=== PATIENT | male | born 1960 | race Caucasian/White ===

== ENCOUNTER 2017-04-19 17:41 | Emergency (ER) | payer OTHER ==
[~2017-04-19] VITALS: Ht 177.8 cm; Wt 77.0 kg
[2017-04-19] MEDS ORDERED: LIDOCAINE HCL 1% 20ML VIAL (Pyxis) INJ MC ONE (20:45)
[2017-04-19] MEDS ORDERED: BACITRACIN ZINC OINT UDPKT TOP ONE (20:45)
[2017-04-19] MEDS ORDERED: ONDANSETRON 4MG ODT PO ONE (21:00)
[2017-04-19] MEDS ORDERED: HYDROCODONE/ACETAMINOPHEN 5/325MG TABLET PO ONE (21:00)
[2017-04-19 21:05] LABS: BASOPHILS % 0.7 % (0.0-2.0); EOSINOPHILS % 0.4 % (0.0-5.0); HEMATOCRIT. 44.5 % (42.0-52.0); HEMOGLOBIN. 15.8 g/dL (14.0-18.0); LYMPHOCYTES % 14.1 % (20.0-50.0); MEAN CORPUSCULAR HEMOGLOBIN 31.4 pg (28.0-32.0); MEAN CORPUSCULAR VOLUME 88.3 fL (80.0-94.0); MEAN PLATELET VOLUME 7.7 fl (7.4-10.4); NEUTROPHILS % 71.8 % (40.0-76.0); PLATELET 213 x1000/uL (130-400); RED BLOOD CELL COUNT 5.04 mill/uL (4.7-6.1); RED CELL DISTRIBUTION WIDTH 12.5 % (11.6-14.6)
[2017-04-19 21:09] LABS: CHLORIDE 97 mEq/L (98-107)
[2017-04-19 21:15] LABS: CARBON DIOXIDE 25 mEq/L (21-32)
[2017-04-19 22:00] VITALS: BP 148/82
[2017-04-19] MEDS ORDERED: SULFAMETHOXAZOLE/TRIMETHOPRIM 800/160MG TABLET PO ONE (22:00)
[2017-04-19] MEDS ORDERED: CEPHALEXIN 500MG CAPSULE PO ONE (22:00)
== END 2017-04-19 22:00 | disposition home or self-care (01) ==
LOC: ER 17:41
DX: L02.212 Cutaneous abscess of back [any part, except buttock and flank] (principal); E11.9 Type 2 diabetes mellitus without complications
CPT/HCPCS: 10060; 36415; 80053; 85025; 99284; J3490; Q0162; X7700; Z7610

== ENCOUNTER 2017-04-20 15:45 | Emergency (ER) | payer OTHER ==
[~2017-04-20] VITALS: Ht 177.8 cm; Wt 91.0 kg
[2017-04-20 15:57] VITALS: BP 165/86
== END 2017-04-20 20:30 | disposition left against medical advice (07) ==
LOC: ER 20:17
DX: Z53.21 Procedure and treatment not carried out due to patient leaving prior to being seen by health care provider (principal)